=== PATIENT | male | born 1950 | race Caucasian/White ===

== ENCOUNTER → 2023-10-24 07:27 | Outpatient (CLI) | payer OTHER, SELFPAY ==
--- NOTE | ~2023-10-24 | US_ITS ---
Limited Abdominal Sonogram: Real-time sonographic imaging of the right upper quadrant was performed. Clinical History: Chronic hepatitis C Findings: The liver appears normal with no evidence of mass lesion or bile duct dilatation. Main por cuca vein demonstrates normal direction of flow. The gallbladder is well distended, and contains a pro bable single small gallstone. The common bile duct measures 5 mm. The visualized pancreas, aorta, an d IVC are unremarkable. Right kidney measures 10.4 cm in length, without hydronephrosis. Impression: Probable single small gallstone. Reviewed, dictated and finalized at location M. SERVICE ADVISER Impression: Probable single small gallstone.
== END ==
PROVIDERS: PCP Nurse Practitioner; Visit Provider Nurse Practitioner
DX: B18.2 Chronic viral hepatitis C (principal)
CPT/HCPCS: 76705